=== PATIENT | female | born 1995 | race Caucasian/White ===

== ENCOUNTER 2016-08-02 09:01 | Emergency (ER) | payer BC ==
[2016-08-02 09:15] VITALS: BP 112/64
--- NOTE | 2016-08-02 09:40 | ED ---
Skin Complaint - HPI Summary HPI Summary: 21 female presents with complaints of a rash that began yesterday 08/02/16. Patient states she had sore throat that started on Sunday that she didn't think was that bad and has been taking tylenol and dayquil/theraflu for the past couple of days with some relief. Patient broke out with a rash on her face and chest yesterday and is concerned. She does not know if she has a had a fever. Denies difficulty breathing, chest pain and nausea/vomiting. The throat has been constantly sore and she does not know of any sick contacts. She had strep when she was little but has not had it recently. Denies itchiness and discharge from the rash. - History of Current Complaint Chief Complaint: UCRespiratory Time Seen by Provider: 08/02/16 09:25 Stated Complaint: RASH Hx Obtained From: Patient Hx Last Menstrual Period: 07/18/16 Onset/Duration: Started Days Ago Timing: Constant Onset Severity: Mild Current Severity: Moderate Pain Intensity: 4 Pain Scale Used: 0-10 Numeric Skin Location: Diffuse, Face, Chest Character: Redness, Raised Aggravating Symptom(s): Nothing Alleviating Symptom(s): OTC Meds Associated Signs & Symptoms: Rash - Allergy/Home Medications Allergies/Adverse Reactions: Allergies Allergy/AdvReac Type Severity Reaction Status Date / Time No Known Allergies Allergy Verified 08/02/16 09:08 Home Medications: Home Medications Ibuprofen [Advil] 400 mg PO ONCE PRN 08/02/16 [History Confirmed 08/02/16] Norgestimate-Ethinyl Estradiol [Beaver-Linyah] 1 tab PO DAILY 08/02/16 [History Confirmed 08/02/16] PMH/Surg Hx/FS Hx/Imm Hx Endocrine/Hematology History: Denies: Hx Diabetes Cardiovascular History: Denies: Hx Syncope Respiratory History: Denies: Hx Asthma Infectious Disease History: No Infectious Disease History: Denies: Traveled Outside the [place] in Last 30 Days - Social History Alcohol Use: Occasionally Substance Use Type: Reports: None Smoking Status (MU): Never Smoked Tobacco Review of Systems Positive: Fever Eyes: Negative Positive: Sore Throat, Nasal Discharge Cardiovascular: Negative Respiratory: Negative Gastrointestinal: Negative Genitourinary: Negative Musculoskeletal: Negative Positive: Rash Neurological: Negative Psychological: Normal All Other Systems Reviewed And Are Negative: Yes Physical Exam Triage Information Reviewed: Yes Vital Signs On Initial Exam: Initial Vitals Temp Pulse Resp BP Pulse Ox 99.3 F 74 18 112/64 100 08/02/16 09:11 08/02/16 09:11 08/02/16 09:11 08/02/16 09:11 08/02/16 09:11 Vital Signs Reviewed: Yes Appearance: Positive: Well-Appearing, No Pain Distress, Well-Nourished Skin: Positive: Warm, Skin Color Reflects Adequate Perfusion, Dry, Erythema @ - face and chest, diffuse. raised, blanchable "sandpaper" appearance and texture. no weeping or discharge non pruritic, sparing hands and feet. appears to be scarlet fever, Other - no signs of rheumatic fever/erythema marginatum at this time Head/Face: Positive: Normal Head/Face Inspection Eyes: Positive: Conjunctiva Clear ENT: Positive: Hearing grossly normal, Pharyngeal erythema - strawberry tongue, Nasal congestion, Nasal drainage, TMs normal, Tonsillar swelling, Tonsillar exudate Dental: Positive: Cervical Lymphadenopathy. Negative: Percussion Tenderness @ Neck: Positive: Supple, Nontender Respiratory/Lung Sounds: Positive: Clear to Auscultation, Breath Sounds Present , Decreased Breath Sounds Cardiovascular: Positive: Normal, RRR, Pulses are Symmetrical in both Upper and Lower Extremities Abdomen Description: Positive: Nontender, No Organomegaly, Soft Bowel Sounds: Positive: Present Musculoskeletal: Positive: Strength/ROM Intact - no aching joint/tenderness, Limited @ Neurological: Positive: Normal, Sensory/Motor Intact, Alert, Oriented to Person Place, Time, CN Intact II-III Psychiatric: Positive: Normal Diagnostics - Vital Signs Vital Signs Temp Pulse Resp BP Pulse Ox 08/02/16 09:11 99.3 F 74 18 112/64 100 - Laboratory Lab Results: Lab Results 08/02/16 Range/Units 09:05 Group A Strep Rapid Positive H (Negative) Lab Statement: Any lab studies that have been ordered have been reviewed, and results considered in the medical decision making process. Course/Dx - Course Course Of Treatment: strep culture obtained and positive. told to continue ibu/ tylenol for fever and pain. prescribed antibiotics. aware of worsening signs and symptoms. drink plenty of fluids. discussed probiotics and possible yeast infection - Differential Diagnoses - Skin Complaint Differential Diagnoses: Drug Rash, Eczema, Scarlatina, Urticaria, Viral Exanthem - Diagnoses Provider Diagnoses: Strep pharyngitis with scarlet fever Discharge - Discharge Plan Condition: Stable Disposition: HOME Prescriptions: Amoxicillin CAP* 500 mg PO Q12H #20 cap Patient Education Materials: Strep Throat (ED), Scarlet Fever (ED) Referrals: Non Staff,Doctor [Primary Care Provider] - Additional Instructions: Take prescribed antibiotics until entire dose is finished even if symptoms resolve. Recommend taking probiotics while taking this medication as we discussed. Antibiotics can decrease the efficacy of your control, advise using extra precaution and forms of control during this time. Continue taking Tylenol/Ibuprofen for pain and fever. Chloraseptic spray over the counter may also help with soothing your throat. Drink plenty of fluids and get rest. Remember strep is very contagious be conscious of yourself, wash hands frequently and do not share drinks. If symptoms do not improve or worsen please return.
== END 2016-08-02 09:51 | disposition home or self-care (01) ==
LOC: UCCORT 09:01
DX: A38.9 Scarlet fever, uncomplicated (principal); J02.0 Streptococcal pharyngitis
CPT/HCPCS: 87651; 99212; G0463

== ENCOUNTER 2017-07-30 11:11 | Emergency (ER) | payer BC ==
[2017-07-30 12:16] VITALS: BP 110/76
--- NOTE | 2017-07-30 12:46 | UC ---
Throat Pain/Nasal Dorian HPI - HPI Summary HPI Summary: Pt presents with c/o sudden onset of THOMPSON, sore throat, generalized malaise X 1 day. 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 - History of Current Complaint Chief Complaint: UCRespiratory Stated Complaint: HEADACHE COUGH Time Seen by Provider: 07/30/17 12:22 Hx Obtained From: Patient Hx Last Menstrual Period: 07/17/17 ?: No Onset/Duration: Sudden Onset, Lasting Days Severity: Mild Pain Intensity: 8 Associated Signs & Symptoms: Positive: Dysphagia - Epiglottits Risk Factors Epiglottis Risk Factors: Negative - Allergies/Home Medications Allergies/Adverse Reactions: Allergies Allergy/AdvReac Type Severity Reaction Status Date / Time No Known Allergies Allergy Verified 07/30/17 12:12 Home Medications: Home Medications Acetaminophen [Acetaminophen Extra Strength] 500 mg PO ONCE 07/30/17 [History Confirmed 07/30/17] PMH/Surg Hx/FS Hx/Imm Hx Previously Healthy: Yes - Surgical History Surgical History: None - Family History Known Family History: Positive: Cardiac Disease - Social History Occupation: Student Lives: Dormitory/Roommates Alcohol Use: Weekly Substance Use Type: None Smoking Status (MU): Never Smoked Tobacco Have You Smoked in the Last Year: No Review of Systems Constitutional: Fatigue Skin: Negative Eyes: Negative ENT: Sore Throat Respiratory: Cough Cardiovascular: Negative Gastrointestinal: Negative Genitourinary: Negative Motor: Negative Neurovascular: Negative Musculoskeletal: Myalgia Neurological: Headache Psychological: Negative Is Patient Immunocompromised?: No All Other Systems Reviewed And Are Negative: Yes Physical Exam Triage Information Reviewed: Yes Appearance: Well-Appearing Vital Signs: Initial Vital Signs Temp 98.9 F 07/30/17 12:10 Pulse 79 07/30/17 12:10 Resp 16 07/30/17 12:10 BP 110/76 07/30/17 12:10 Pulse Ox 100 07/30/17 12:10 Vital Signs Reviewed: Yes Eye Exam: Normal ENT Exam: Other ENT: Positive: Nasal congestion Dental Exam: Normal Neck exam: Normal Respiratory Exam: Normal Cardiovascular Exam: Normal Musculoskeletal Exam: Normal Neurological Exam: Normal Psychological Exam: Normal Skin Exam: Normal Throat Pain/Nasal Course/Dx - Course Course Of Treatment: Pt denied rapid flu test. - Differential Dx/Diagnosis Differential Diagnosis/HQI/PQRI: Influenza, Mononucleosis, Pharyngitis, Tonsillitis, URI, Other - migraine Provider Diagnoses: viral syndrome Discharge - Discharge Plan Condition: Stable Disposition: HOME Prescriptions: Oseltamivir CAP* [Tamiflu CAP*] 75 mg PO Q12H #10 cap Patient Education Materials: Viral Syndrome (ED) Forms: *School Release, *Work Release Referrals: [facility] [place] [facility] [Outside] Non Staff,Doctor [Primary Care Provider] -
== END 2017-07-30 12:57 | disposition home or self-care (01) ==
LOC: UCCORT 11:11
DX: B34.9 Viral infection, unspecified (principal)
CPT/HCPCS: 87651; 99212; G0463